=== PATIENT | male | born 1960 | race Caucasian/White ===

== ENCOUNTER 2017-04-04 11:30 | Emergency (ER) | payer MEDICAID ==
[~2017-04-04] VITALS: Ht 170.2 cm; Wt 88.9 kg
[~2017-04-04 11:30] MED LIST: ESOM40CA PO; FOLIC ACID PO; LANTUS INSULIN SUBCUT; METO25TA3 PO; NEBI10TA2 PO
[2017-04-04 12:33] VITALS: BP 129/81
--- NOTE | 2017-04-04 12:33 | NUR ---
Patient discharged to home in stable conditon. Written and verbal after care instructions given. Patient verbalizes understanding of instructions.pt walks in steady gait, says feels better, eubreathing
== END 2017-04-04 12:34 | disposition home or self-care (01) ==
LOC: ER 11:30
DX: J40 Bronchitis, not specified as acute or chronic (principal); I10 Essential (primary) hypertension; F17.200 Nicotine dependence, unspecified, uncomplicated; E11.9 Type 2 diabetes mellitus without complications; Z79.4 Long term (current) use of insulin; K21.9 Gastro-esophageal reflux disease without esophagitis; Z88.0 Allergy status to penicillin
CPT/HCPCS: 71010; 94640; 99283; A4663; J3590